=== PATIENT | female | born 1985 | race Caucasian/White ===

== ENCOUNTER 2016-07-10 10:54 | Emergency (ER) | payer BC ==
[~2016-07-10] VITALS: Ht 162.6 cm; Wt 66.7 kg
--- NOTE | 2016-07-10 10:56 | NUR ---
pt ambulatory to er bed 11. c/o facial pressure and nasal congestion that started after taking antibiotics for blepharitis 2 weeks ago. placed on monitor. vss. nad noted. awaiting md huerta.
--- NOTE | 2016-07-10 11:26 | NUR ---
dr egan at bedside for eval.
[2016-07-10 11:53] LABS: BASOPHILS % (AUTO) 0.3 % (0.0-2.0); EOSINOPHILS # (AUTO) 0.2 /CMM (0.0-0.7); EOSINOPHILS % (AUTO) 2.7 % (0.0-6.0); HEMATOCRIT 43 % (33-45); HEMOGLOBIN 14.4 g/dL (11.5-14.8); LYMPHOCYTES # (AUTO) 1.7 /CMM (0.8-4.8); LYMPHOCYTES % (AUTO) 22.2 % (20.0-44.0); MEAN CORPUSCULAR HEMOGLOBIN 30 PG (26.0-33.0); MEAN CORPUSCULAR HGB CONC 34 g/dl (31.0-36.0); MEAN CORPUSCULAR VOLUME 87 fL (82-100); MONOCYTES # (AUTO) 0.5 /CMM (0.1-1.30); MONOCYTES % (AUTO) 7.1 % (2.0-12.0); NEUTROPHILS # (AUTO) 5.2 /CMM (1.8-8.9); NEUTROPHILS % (AUTO) 67.7 % (43.0-81.0); PLATELET COUNT (AUTO) 240 /CMM (150-450); RED BLOOD CELL COUNT(AUTO) 4.88 MIL/uL (4.0-5.2); WHITE BLOOD COUNT (AUTO) 7.6 K/uL (4.3-11.0)
--- NOTE | 2016-07-10 12:03 | NUR ---
unable to provide urine specimen. pt states not and willing to sign waiver. radiology informed.
[2016-07-10 12:04] LABS: CALCIUM, SERUM 9.5 mg/dL (8.5-10.1); CREATININE 0.8 mg/dL (0.6-1.3); POTASSIUM 4.1 mmol/L (3.5-5.1)
[2016-07-10] MEDS ORDERED: IOHEXOL-300 100 ML VIAL IV ONE (12:18)
[2016-07-10] MEDS ORDERED: CT SWABBABLE VALVE TRANS SET 1 EA INFUS.SET MC ONE (12:18)
[2016-07-10] MEDS ORDERED: IV NS 0.9% 250 ML IV ONE (12:18)
--- NOTE | 2016-07-10 12:20 | NUR ---
pt to radiology for facial ct scan via wheelchair.
--- NOTE | 2016-07-10 13:46 | NUR ---
Patient discharged to home in stable condition. Written and verbal after care instructions given. Patient verbalizes understanding of instruction.IV removed. Catheter intact and site benign. Pressure and 4x4 applied to site. No bleeding noted.
[2016-07-10 13:47] VITALS: BP 128/77
== END 2016-07-10 13:47 | disposition home or self-care (01) ==
LOC: ER 10:58
DX: J32.9 Chronic sinusitis, unspecified (principal); Z88.1 Allergy status to other antibiotic agents
CPT/HCPCS: 36415; 70487; 80048; 85025; 99285; A4606; J7050; Q9967; Z7610